=== PATIENT | female | born 1945 | race Caucasian/White ===

== ENCOUNTER → 2017-04-24 | Outpatient (CLI) | payer OTHER, BC | LOC: MMPC 11:11 | PROVIDERS: ATTEND Nurse Practitioner | DX: Z23 Encounter for immunization (principal) | CPT/HCPCS: 90715; G0439; G0463; 90670 ==

== ENCOUNTER → 2017-04-30 | Outpatient (CLI) | payer OTHER, BC | LOC: MMPC 09:00 | DX: T50.A15A Adverse effect of pertussis vaccine, including combinations with a pertussis component, initial encounter (principal) | CPT/HCPCS: 99212; G0463 ==